=== PATIENT | female | born 1985 | race Caucasian/White ===

== ENCOUNTER 2016-12-03 07:30 | Observation (INO) | payer OTHER ==
[2016-12-04 06:57] LABS: % IMMATURE GRANULYOCYTES 0.4 % (0.0-1.1); ABSOLUTE IMMATURE GRANULOCYTES 0.03 10^3/uL (0.00-0.10); ADD DIFF? NO; ADD MORPH? NO; ADD SCAN? NO; ATYPICAL LYMPHOCYTE FLAG 0 (0-99); FRAGMENT RBC FLAG 0 (0-99); HEMATOCRIT 31.4 % (38.0-47.0); HEMOGLOBIN 10.6 g/dL (12.6-16.3); LEFT SHIFT FLG 0 (0-99); LIPEMIA HEMOLYSIS FLAG 90 (0-99); MEAN CELL HEMOGLOBIN CONCENTR. 33.8 g/dL (32.4-36.7); MEAN PLATELET VOLUME 9.3 fL (8.7-11.7); PLATELET CLUMPS FLAG 0 (0-99); PLATELET COUNT 393 10^3/uL (150-400); RED BLOOD CELL COUNT 3.65 10^6/uL (4.18-5.33); RED CELL DISTRIBUTION WIDTH 12.9 % (11.5-15.2)
[2016-12-04] MEDS ORDERED: TERBUTALINE SULFATE 1 MG/ML VIAL IV ONE (07:01)
[2016-12-04] MEDS ORDERED: OLIVE OIL 118 ML BTL ONE (07:24)
--- NOTE | 2016-12-04 07:38 | OBPROG ---
OBG Labor Progress Note Assessment/Plan: Assessment: cephalic by us and koko today on exam consult ddr. russ chang for verification reactive NST dischagre to home with instructions fu visit in the office this week Plan:discharge to home with instructions 12/04/16 07:35 Subjective: Denies leaking bleeding and cramping. States feeling movement. Objective: 12/04/16 06:45 - Physical Exam General Appearance: WD/WN, alert, no apparent distress Respiratory: chest non-tender, lungs clear, normal breath sounds Cardiac/Chest: regular rate, rhythm Abdomen: normal bowel sounds Extremities: normal range of motion, Farshad's sign (negative bilaterally) DTR- Lower Extremities: Knee (R): 1+, Knee (L): 1+ (no clonus) Skin: normal color, warm/dry Neuro/Psych: no motor/sensory deficits, alert, normal mood/affect, oriented x 3 Oxytocin Orders Assessment - Pre-Induction/Augmentation Assessment Gestational Age: 37 week(s) and 3 day(s) ICD10 Worksheet Patient Problems: Problems Problem Status Onset Cephalic version antepartum Acute - ICD10 Problem Qualifiers (1) Cephalic version antepartum
[2016-12-04] MEDS ORDERED: LR 1,000 ML IV PRN (07:56)
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
== END 2016-12-04 07:55 | disposition home or self-care (01) ==
LOC: FLD 12-04 06:30 → FOBOP 12-04 06:38 → EDSTATUS 12-04 07:30
PROVIDERS: ADMIT Obstetrics & Gynecology; ATTEND Obstetrics & Gynecology
PROC: 10S0XZZ Reposition Products of Conception, External Approach (ICD-10-PCS; principal; 2016-12-04)
DX: O32.8XX0 Maternal care for other malpresentation of fetus, not applicable or unspecified (principal); Z3A.37 37 weeks gestation of pregnancy
CPT/HCPCS: J3105

== ENCOUNTER 2016-12-25 10:20 | Inpatient (IN) | payer OTHER ==
[2016-12-25] MEDS ORDERED: OXYTOCIN/RINGERS LACTATE 1,000 ML IV PRN (10:24)
[2016-12-25] MEDS ORDERED: EPSOM SALT 454 GM TP PRN (10:24)
[2016-12-25] MEDS ORDERED: TERBUTALINE SULFATE 1 MG/ML VIAL IV PRN (10:24)
[2016-12-25] MEDS ORDERED: OLIVE OIL 118 ML BTL MISC PRN (10:24)
[2016-12-25] MEDS ORDERED: LR 1,000 ML IV PRN (10:24)
[2016-12-25] MEDS ORDERED: LR 500 ML IV PRN (10:27)
[2016-12-25] MEDS ORDERED: OXYTOCIN/RINGERS LACTATE 500 ML IV SCH (10:30)
[2016-12-25 12:16] LABS: % IMMATURE GRANULYOCYTES 0.1 % (0.0-1.1); ABSOLUTE IMMATURE GRANULOCYTES 0.01 10^3/uL (0.00-0.10); ADD DIFF? NO; ADD MORPH? NO; ADD SCAN? NO; ATYPICAL LYMPHOCYTE FLAG 0 (0-99); FRAGMENT RBC FLAG 0 (0-99); HEMATOCRIT 31.8 % (38.0-47.0); HEMOGLOBIN 10.6 g/dL (12.6-16.3); LEFT SHIFT FLG 0 (0-99); LIPEMIA HEMOLYSIS FLAG 80 (0-99); MEAN CELL HEMOGLOBIN 28.5 pg (27.9-34.1); MEAN CELL HEMOGLOBIN CONCENTR. 33.3 g/dL (32.4-36.7); MEAN CELL VOLUME 85.5 fL (81.5-99.8); MEAN PLATELET VOLUME 10.1 fL (8.7-11.7); PLATELET CLUMPS FLAG 10 (0-99); PLATELET COUNT 272 10^3/uL (150-400); RED BLOOD CELL COUNT 3.72 10^6/uL (4.18-5.33); RED CELL DISTRIBUTION WIDTH 13.5 % (11.5-15.2)
[2016-12-25] MEDS ORDERED: OLIVE OIL 118 ML BTL ONE (12:17)
[2016-12-25] MEDS ORDERED: LIDOCAINE 1% 300 MG/30 ML SDV ONE (12:17)
[2016-12-25] MEDS ORDERED: AMMONIA AROMATIC 1 EACH AMP IH ONE (12:18)
[2016-12-25] MEDS ORDERED: TERBUTALINE SULFATE 1 MG/ML VIAL ONE (12:18)
[2016-12-25] MEDS ORDERED: MISOPROSTOL 200 MCG TAB ONE (12:18)
[2016-12-25] MEDS ORDERED: OXYTOCIN 10 UNIT/ML VIAL ONE (12:18)
[2016-12-25] MEDS ORDERED: fentaNYL 2MCG/ML/BUP 0.1% RTU 100 ML BAG EP ONE (16:36)
[2016-12-25] MEDS ORDERED: BUPIVACAINE 0.25% 30 ML SDV ONE (16:36)
[2016-12-25] MEDS ORDERED: PHENYLEPHRINE HCL 100 MCG/ML SYR ONE (16:36)
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
[2016-12-25] MEDS ORDERED: ONDANSETRON 4 MG/2 ML VIAL IVP PRN (17:07)
[2016-12-25] MEDS ORDERED: METOCLOPRAMIDE 10 MG/2 ML VIAL IVP PRN (17:07)
[2016-12-25] MEDS ORDERED: PHENYLEPHRINE HCL 100 MCG/ML SYR IVP PRN (17:07)
[2016-12-25] MEDS ORDERED: NALOXONE HCL 0.4 MG/ML INJ IVP PRN (17:07)
--- NOTE | 2016-12-25 17:12 | PREANESOB ---
Obstetric Pre-Anesthesia Info - General Info Proposed Procedure: CSE for Labor and presumed : 5 Para: 0 - Info Status: Postmature Monitors: External FHR Baseline (bpm): 120 FHR Pattern: Reassuring - Labor Status Cervical Dilation per last OB SVE: 4 Station per last OB SVE: -1 Time of last SVE per OB: 15:30 Pitocin: In Use PIH: No Indications for Labor Analgesia: Augmentation of Labor, Pain Control Labor Epidural: Proposed Anesthesia Allergies/Adverse Reactions: Allergy/AdvReac Type Severity Reaction Status Date / Time No Known Allergies Allergy Unverified 11/28/14 14:21 Home Medications: Medication Instructions Recorded Iron 2 tab PO DAILY 12/04/16 Lexapro 10 MG 1 tab PO DAILY 12/04/16 1 tab PO DAILY 12/04/16 Visit Medications: Generic Name Dose Route Start Last Admin Trade Name Freq PRN Reason Stop Dose Admin Lactated Ringer's 1,000 mls @ 0 mls/hr 12/25/16 10:24 Lr IV 06/23/17 10:23 PRN PRN SEE PROTOCOL CONDITIONS Protocol Per Protocol Lactated Ringer's 500 mls @ 500 mls/hr 12/25/16 10:27 Lr IV PRN PRN Maternal Hypotension Oxytocin/Lactated Ringer's 1,000 mls @ 150 mls/hr 12/25/16 10:24 Pitocin 20 Units/Lr (Premix) IV PRN PRN Post- bleeding Oxytocin/Lactated Ringer's 500 mls @ 0 mls/hr 12/25/16 10:30 Pitocin 30 Units/Lr (Premix) IV 06/23/17 10:29 CONT LISETTE Protocol Per Protocol Ibuprofen 600 mg 12/25/16 10:24 Motrin PO 06/23/17 10:23 Q6HRS PRN post , inflammation Magnesium Sulfate 454 gm 12/25/16 10:24 Epsom Salt TP 06/23/17 10:23 Q1H PRN perineal discomfort Osceola Oil 118 ml 12/25/16 10:24 Sweet Oil MISC 06/23/17 10:23 ONCE PRN preneal massage Terbutaline Sulfate 0.25 mg 12/25/16 10:24 Brethine IV 06/23/17 10:23 ONCE PRN Tachysystole Discontinued Medications Generic Name Dose Route Start Last Admin Trade Name Freq PRN Reason Stop Dose Admin Ammonia (Aromatic Spirit) Confirm 12/25/16 12:18 Ammonia Aromatic Administered 12/25/16 12:19 Dose 1 each IH .STK-MED ONE Bupivacaine HCl Confirm 12/25/16 16:36 Sensorcaine 0.25% Sdv Administered 12/25/16 16:37 Dose 30 ml .ROUTE .STK-MED ONE Ephedrine Sulfate Confirm 12/25/16 12:18 Ephedrine Sulfate Administered 12/25/16 12:19 Dose 50 mg .ROUTE .STK-MED ONE Fentanyl/Bupivacaine HCl Confirm 12/25/16 16:36 Fentanyl/Bupivacaine/Ns 2 Mcg/Ml 0.1% (Premix Administered 12/25/16 16:37 Dose 100 ml EP .STK-MED ONE Lidocaine HCl Confirm 12/25/16 12:17 Lidocaine Hcl 1% Administered 12/25/16 12:18 Dose 300 mg .ROUTE .STK-MED ONE Misoprostol Confirm 12/25/16 12:18 Cytotec Administered 12/25/16 12:19 Dose 1,000 mcg .ROUTE .STK-MED ONE Osceola Oil Confirm 12/25/16 12:17 Sweet Oil Administered 12/25/16 12:18 Dose 118 ml .ROUTE .STK-MED ONE Oxytocin Confirm 12/25/16 12:18 Pitocin Administered 12/25/16 12:19 Dose 40 unit .ROUTE .STK-MED ONE Phenylephrine HCl Confirm 12/25/16 16:36 Neosynephrine Administered 12/25/16 16:37 Dose 1,000 mcg .ROUTE .STK-MED ONE Terbutaline Sulfate Confirm 12/25/16 12:18 Brethine Administered 12/25/16 12:19 Dose 1 mg .ROUTE .STK-MED ONE - Anesthesia History Response to Local Anesthetics: Normal Anesthesia & Operative History: No Prior Problems Family Anesthesia History: Negative - Social History Substance Use/Abuse: Denies - Focused Exam Height/Weight (Nursing): Height 157.48 cm Weight 72.121 kg Respiratory: lungs clear Cardiovascular: regular rate, rhythm ASA Status: II Labs: 12/25/16 12:02 Patient ABO/Rh O POSITIVE 12/25/16 12:02 - Plan Consent Signed and on Chart: Yes Patient/Guardian Understands and Agrees to Plan: Yes Urgent/Emergent Case: Kamla salazar completed preop but documented later for safe timely pt care
[2016-12-25] MEDS ORDERED: LR 500 ML IV SCH (17:30)
[2016-12-25] MEDS ORDERED: fentaNYL 2MCG/ML/BUP 0.1% RTU 100 ML EP SCH (17:30)
--- NOTE | 2016-12-25 21:04 | OBPROG ---
OBG Labor Progress Note Assessment/Plan: Assessment: Plan: Subjective: patient comfortable with epidural. AROm at 1740. IUPC placed. small amount of clear fluid. pitocin at 22 mu. adequate contractions. status reassuring. positioned into high fowlers. Objective: 12/25/16 12:02 Patient ABO/Rh O POSITIVE 12/25/16 12:02 - SVE Dilation (cm): 7, 8 Effacement (%): 80 Station: -1 - Procedures Non-surgical Procedures: Amniotomy, IUPC Oxytocin Orders Assessment - Pre-Induction/Augmentation Assessment Gestational Age: 40 week(s) and 3 day(s) ICD10 Worksheet Patient Problems: Problems Problem Status Onset First stage of labor Acute
--- NOTE | 2016-12-25 21:58 | OBPROG ---
OBG Labor Progress Note Assessment/Plan: Assessment: Plan: Subjective: patient is feeling some discomfort on the left side. sve 9/100/-1. will push bolus button and position onto left side. will recheck in an hour. or sooner if indicated. Objective: 12/25/16 12:02 Patient ABO/Rh O POSITIVE 12/25/16 12:02 - SVE Dilation (cm): 9 Effacement (%): 90 Station: -1 - Procedures Non-surgical Procedures: Amniotomy, IUPC Oxytocin Orders Assessment - Pre-Induction/Augmentation Assessment Gestational Age: 40 week(s) and 3 day(s) ICD10 Worksheet Patient Problems: Problems Problem Status Onset First stage of labor Acute
--- NOTE | 2016-12-26 01:47 | OBPROG ---
OBG Labor Progress Note Assessment/Plan: Assessment: Plan: Subjective: patient complete and pushing. status overall reassuring. Objective: 12/25/16 12:02 Patient ABO/Rh O POSITIVE 12/25/16 12:02 - SVE Dilation (cm): 10 Effacement (%): 100 Station: +2 Dilation Complete Date: 12/26/16 - Procedures Non-surgical Procedures: Amniotomy, IUPC Oxytocin Orders Assessment - Pre-Induction/Augmentation Assessment Gestational Age: 40 week(s) and 3 day(s) ICD10 Worksheet Patient Problems: Problems Problem Status Onset First stage of labor Acute
[2016-12-26] MEDS ORDERED: SIMETHICONE 80 MG TAB CHEW PO PRN (02:43)
[2016-12-26] MEDS ORDERED: ACETAMINOPHEN 325 MG TAB PO PRN (02:43)
[2016-12-26] MEDS ORDERED: HYDROCORTISONE 0.5% CREAM TP PRN (02:43)
--- NOTE | 2016-12-26 02:47 | OBDEL ---
Info Type: Vaginal GBS+: No Vaginal Delivery - Labor and Delivery Onset of Contractions Date: 12/25/16 Onset of Contractions Time: 17:40 Onset of Contractions Type: Induced Rupture of Membranes Date: 12/25/16 Rupture of Membranes Time: 17:40 Rupture of Membranes Type: Artificial Amniotic Fluid Color: Clear Dilation Complete Date: 12/26/16 Dilation Complete Time: 01:15 Placenta Delivery Date: 12/26/16 Placenta Delivery Time: 02:26 Total Hours of Labor: 8 Non-surgical Procedures: Amniotomy, IUPC Laceration: 1st Degree, Other (Specify) (right labial) Repair: 3-0 Vaginal Sponge Count Correct: Yes Vaginal Needle Count Correct: Yes Vaginal Sweep Performed: Yes EBL: 300 Delivery Events: None - Medications Labor Augmentation/Induction Methods Used: Pitocin Labor Augmentation/Induction Indication: Other (Specify) (suspicious testing past 40 weeks) Data Alvarez Delivery Date: 12/26/16 Delivery Time: 02:20 SORAYA: 12/22/16 Gestational Age: 40 week(s) and 4 day(s) Sex of Infant: Male Score (1 Min): 8 Score (5 Min): 9 ICD10 Worksheet Patient Problems: Problems Problem Status Onset First stage of labor Acute Spontaneous vaginal delivery Acute - ICD10 Problem Qualifiers (1) Spontaneous vaginal delivery
[2016-12-26] MEDS: IBUPROFEN 600 MG TAB PO PRN ×4 (03:50→23:29)
[2016-12-26 05:34] VITALS: RESP 16
[2016-12-26] MEDS ORDERED: LEXAPRO 10 MG PO SCH (09:00)
[2016-12-26] MEDS: IRON POLYSAC/IRON HEME 28 MG TAB PO SCH ×2 (11:26→21:34)
[2016-12-26] MEDS: ESCITALOPRAM OXALATE 10 MG TAB PO SCH (11:26)
[2016-12-26] MEDS: DOCUSATE SODIUM 100 MG CAP PO PRN ×2 (11:26→21:34)
[2016-12-26] MEDS: HYDROCODONE/APAP 5/325 TAB PO PRN (19:40)
[2016-12-27] MEDS: HYDROCODONE/APAP 5/325 TAB PO PRN ×4 (01:52→19:23)
[2016-12-27] MEDS: IBUPROFEN 600 MG TAB PO PRN ×3 (05:52→18:26)
[2016-12-27] MEDS: IRON POLYSAC/IRON HEME 28 MG TAB PO SCH ×2 (10:20→22:51)
[2016-12-27] MEDS: ESCITALOPRAM OXALATE 10 MG TAB PO SCH (10:20)
[2016-12-27] MEDS: DOCUSATE SODIUM 100 MG CAP PO PRN ×2 (10:20→19:23)
--- NOTE | 2016-12-27 11:32 | OBPP ---
Progress Note Assessment/Plan: Assessment: 31 y/o PPD #1 s/p doing well. Plan: support. Bifera BID and routine PPC. 12/27/16 11:31 Subjective: Pt is doing well this am. She has min pain, cramping controlled with Ibuprofen and [place]. Ambulating and voiding without difficulty and has min lochia. Baby is doing well and they are working on latching. Objective: 12/25/16 12:02 Patient ABO/Rh O POSITIVE 12/25/16 12:02 Temp Pulse Resp BP Pulse Ox 36.1 C 73 16 100/60 95 12/27/16 10:31 12/27/16 10:31 12/27/16 10:31 12/27/16 10:31 12/26/16 20:15 Uterine Position/Fundal Height: Umbilicus -2 Uterine Tone: Firm Physical Exam - Physical Exam General Appearance: WD/WN, alert, no apparent distress Neck: non-tender, full range of motion, supple Respiratory: chest non-tender, lungs clear, normal breath sounds Cardiac/Chest: regular rate, rhythm Abdomen: normal bowel sounds Extremities: swelling (no), Farshad's sign (neg)
[2016-12-28] MEDS: IBUPROFEN 600 MG TAB PO PRN ×2 (00:38→06:15)
[2016-12-28] MEDS: HYDROCODONE/APAP 5/325 TAB PO PRN ×3 (02:07→10:40)
[2016-12-28] MEDS: ESCITALOPRAM OXALATE 10 MG TAB PO SCH (10:40)
[2016-12-28] MEDS: IRON POLYSAC/IRON HEME 28 MG TAB PO SCH (10:40)
[2016-12-28] MEDS: DOCUSATE SODIUM 100 MG CAP PO PRN (10:45)
[2016-12-28 10:51] VITALS: BP 100/67; PULSE 68; TEMP 98; O2SAT 95
--- NOTE | 2016-12-28 10:58 | OBPP ---
Progress Note Assessment/Plan: Assessment: 1) s/p PPD # 2 - pt is stable 2) Anemia - pt is asymptomatic Plan: Plan for d/c home today Instructions reviewed with pt Rx given for Iuka and Motrin Cont PNV, iron and colace Pelvic rest RTC in 4 and 6 weeks for pp visit 12/28/16 10:58 Subjective: Pt seen and examined. Doing well with no complaints. Mod cramping, relief with [place]. Moderate lochia. Voiding without difficulty. BM x 2. BF without difficulty. Objective: 12/25/16 12:02 Patient ABO/Rh O POSITIVE 12/25/16 12:02 Temp Pulse Resp BP Pulse Ox 36.6 C 68 16 100/67 95 12/28/16 09:00 12/28/16 09:00 12/28/16 09:00 12/28/16 09:00 12/28/16 09:00 Uterine Position/Fundal Height: Umbilicus -2 Uterine Tone: Firm Physical Exam - Physical Exam General Appearance: WD/WN, alert, no apparent distress Respiratory: lungs clear, normal breath sounds Cardiac/Chest: regular rate, rhythm Abdomen: normal bowel sounds, non-tender, soft, flatus (+) Extremities: non-tender, normal inspection Skin: normal color, warm/dry Neuro/Psych: alert, normal mood/affect, oriented x 3
--- NOTE | 2016-12-28 11:04 | OBGCSDC ---
General Delivery Information - General Info : 5 Para: 1 Delivery Physician/CNM: Cathleen Correa Admission Date: 12/25/16 Labs: Patient ABO/Rh O POSITIVE 12/25/16 12:02 Hct 31.8 % (38.0-47.0) L 12/25/16 12:02 Vaginal - Diagnosis Labor: Induced Rupture of Membranes Type: Artificial Amniotic Fluid Color: Clear Laceration: 1st Degree, Other (Specify) (right labial) Repair: 3-0 Delivery Events: None - Operations/Procedures Non-surgical Procedures: Amniotomy, IUPC L&D Analgesia/Anesthesia Type: Epidural - Hospital Course Antepartum: NST in office with variable decels; BPP 09/13. Landers bulb placed. Intrapartum: Landers in place; 2. Pitocin started. RAMÓN, AROM, IUPC. Good progress. Pushed x 1 hour. : Uncomplicated. Mod cramping, relief with [place]. Moderate lochia. Voiding without difficulty. BM x 2. BF without difficulty. - Delivery Non-surgical Procedures: Amniotomy, IUPC L&D Analgesia/Anesthesia Type: Epidural Data Alvarez Delivery Date: 12/26/16 Delivery Time: 02: SORAYA: 12/22/16 Gestational Age: 40 week(s) and 6 day(s) Sex of : Male Weight (gm): 0 g Score (1 Min): 8 Score (5 Min): 9 Discharge Information - Discharge Information Discharge Medications: Iron, Ibuprofen, Vitamins, Other (Specify) ( [place]) Condition: Good Instruction/Follow Up: Four Weeks, Six Weeks Discharge Physician/CNM: Katlyn Bell
== END 2016-12-28 12:30 | disposition home or self-care (01) | DRG 775 ==
LOC: FLD 10:20 → FOB 12-26 05:00
PROVIDERS: ADMIT Advanced Practice Midwife; ATTEND Obstetrics & Gynecology
PROC: 10H073Z Insertion of Monitoring Electrode into Products of Conception, Via Natural or Artificial Opening (ICD-10-PCS; 2016-12-25)
PROC: 10907ZC Drainage of Amniotic Fluid, Therapeutic from Products of Conception, Via Natural or Artificial Opening (ICD-10-PCS; 2016-12-25)
PROC: 3E033VJ Introduction of Other Hormone into Peripheral Vein, Percutaneous Approach (ICD-10-PCS; 2016-12-25)
PROC: 0KQM0ZZ Repair Perineum Muscle, Open Approach (ICD-10-PCS; principal; 2016-12-26)
PROC: 10E0XZZ Delivery of Products of Conception, External Approach (ICD-10-PCS; principal; 2016-12-26)
DX: O48.0 Post-term pregnancy (principal); O70.0 First degree perineal laceration during delivery; O99.344 Other mental disorders complicating childbirth; F32.9 Major depressive disorder, single episode, unspecified; Z3A.40 40 weeks gestation of pregnancy; Z37.0 Single live birth
CPT/HCPCS: J2370; J2590; J3105